=== PATIENT | female | born 1935 | race Caucasian/White ===

== ENCOUNTER 2020-03-03 15:37 | Emergency (ER) | payer MEDICARE, BC ==
[2020-03-03] MEDS ORDERED: Sodium Chloride 0.9% 10 ML Syringe FLUSH PRN (15:57)
[2020-03-03] MEDS ORDERED: Sodium Chloride 0.9% 1,000 ML IV STA (17:03)
--- NOTE | 2020-03-03 17:03 | CR ---
Chest: Portable view of the chest was obtained. Comparison: No prior chest imaging is available. Atelectasis is noted within the right lung base. Heart is slightly enlarged. Tortuous or aneurysmal aorta is noted. Commentary vessels are felt to be slightly congested. Bony structures are grossly intact. Impression: 1. Pulmonary vessels are mildly congested. 2. Mild right basilar atelectasis. 3. Tortuous or aneurysmal thoracic aorta. Diagnostic code #3 This report was dictated in MDT
--- NOTE | 2020-03-03 17:03 | CR ---
Abdomen: Portable supine view of the abdomen was obtained. Comparison: No prior abdominal x-ray. Motion artifact is seen. Surgical clips are seen within the pelvis as well as from prior cholecystectomy. Bowel gas pattern is normal. Bony structures are osteopenic. Compression deformity appears to be present within L1. Impression: 1. Findings as noted above. 2. Nothing acute is seen. Diagnostic code #2 This report was dictated in MDT
[2020-03-03] MEDS ORDERED: LORazepam 2 MG/ML SDV IVPUSH ONE (17:06)
--- NOTE | 2020-03-03 17:11 | EDM.PDOC ---
ED HPI GENERAL MEDICAL PROBLEM - General Chief Complaint: Back Pain or Injury Stated Complaint: [facility] Time Seen by Provider: 03/03/20 15:57 Source of Information: Reports: Patient History Limitations: Reports: No Limitations - History of Present Illness INITIAL COMMENTS - FREE TEXT/NARRATIVE: Patient is an 85-year-old female sent to the emergency department from [facility] with complaints of low back pain abdominal distention. jail reports that she had been constipated but received a Dulcolax suppository yesterday. After that she did have a large bowel movement. She had a urinalysis done by straight cath on 03 March which was negative for infection. Patient has a history of dementia and is combative and unable to communicate appropriately. Nursing staff reports that on arrival, she was complaining of pain to her legs, arms, back when being moved from the cart to the bed. Patient's is present at bedside and denies any recent falls or injuries to his knowledge. - Related Data Allergies Allergy/AdvReac Type Severity Reaction Status Date / Time amoxicillin Allergy Severe Cannot Verified 03/03/20 15:46 Remember citalopram Allergy Severe Cannot Verified 03/03/20 15:46 Remember sulfamethoxazole Allergy Severe Cannot Verified 03/03/20 15:46 [From Remember Sulfamethoxazole-Trimethoprim] trimethoprim Allergy Severe Cannot Verified 03/03/20 15:46 [From Remember Sulfamethoxazole-Trimethoprim] Home Meds: Home Meds Acetaminophen [Tylenol] 650 mg PO BID 03/03/20 [History] Acetaminophen [Tylenol] 650 mg PO Q6H PRN 03/03/20 [History] Alum Hydrox/Mag Hydrox/Simeth [Maalox Advanced] 30 ml PO Q4H PRN 03/03/20 [History] Bisacodyl [Gentle Laxative] 10 mg RECTAL DAILY PRN 03/03/20 [History] Carboxymethylcellulose/Lytes [Jose G-Stir Oral [place]] 1 spray BUCCAL Q4H PRN 03/03/20 [History] Escitalopram Oxalate 5 mg PO DAILY 03/03/20 [History] Menthol/Methyl Salicylate [Icy Hot] 1 applic TOP Q6HR PRN 03/03/20 [History] Ondansetron [Zofran ODT] 4 mg PO Q4H PRN 03/03/20 [History] Propylene Glycol/Peg 400 [Systane 0.3-0.4% Eye Drops] 1 - 2 drop EYEBOTH Q1H 03/03/20 [History] QUEtiapine Fumarate [Seroquel] 50 mg PO TID 03/03/20 [History] polyethylene glycoL 3350 [MiraLAX] 17 g PO DAILY 03/03/20 [History] Past Medical History Cardiovascular History: Reports: Other (See Below) Other Cardiovascular History: nonrheumatic mitral prolapse , hyperlipidemia, fatgue, thoracic aortic aneurysm without rupture Gastrointestinal History: Reports: Chronic Constipation, Other (See Below) Other Gastrointestinal History: epigastric pain , peptic ulcer Genitourinary History: Reports: UTI, Recurrent Musculoskeletal History: Reports: Osteoarthritis, Osteoporosis Neurological History: Reports: Alzheimers Disease, Other (See Below) Other Neuro History: unspecified dementia with behavioral disturbance Psychiatric History: Reports: Alzheimers Disease Dermatologic History: Reports: Other (See Below) Other Dermatologic History: seborrheic dermatitis Social & Family History - Tobacco Use Smoking Status *Q: Never Smoker - Caffeine Use Caffeine Use: Reports: Coffee - Recreational Drug Use Recreational Drug Use: No ED ROS GENERAL - Review of Systems Review Of Systems: See Below Constitutional: Denies: Fever, Weakness, Fatigue, Decreased Appetite HEENT: Reports: No Symptoms Respiratory: Reports: No Symptoms. Denies: Cough Cardiovascular: Reports: No Symptoms. Denies: Chest Pain Endocrine: Reports: No Symptoms GI/Abdominal: Reports: Constipation, Distension. Denies: Abdominal Pain, Vomiting : Reports: No Symptoms Musculoskeletal: Reports: Back Pain Skin: Reports: No Symptoms Neurological: Reports: No Symptoms Psychiatric: Reports: No Symptoms Hematologic/Lymphatic: Reports: No Symptoms Immunologic: Reports: No Symptoms ED EXAM,LOWER BACK PAIN/INJURY - Physical Exam Exam: See Below Exam Limited By: Other (confused and somewhat combative secondary to dementia) General Appearance: Alert Respiratory/Chest: No Respiratory Distress, Lungs Clear, Normal Breath Sounds, No Accessory Muscle Use, Chest Non-Tender Cardiovascular: Normal Peripheral Pulses, Regular Rate, Rhythm, No Edema, No Gallop, No JVD, No Murmur, No Rub Back Exam: Other (generalized tenderness to upper and lower back) Neurological: Alert, No Motor/Sensory Deficits, Other (patient is confused and combative at baseline secondary to dementia.) Course - Vital Signs Last Recorded V/S: Last Vital Signs Temp 97.2 F 09/15/20 18:20 Pulse 91 03/03/20 18:20 Resp 16 03/03/20 18:20 BP 139/92 H 03/03/20 18:20 Pulse Ox 92 L 03/03/20 18:38 - Orders/Labs/Meds Labs: Laboratory Tests 03/03/20 03/03/20 03/03/20 Range/Units 16:30 16:30 16:35 WBC 10.56 H (3.98-10.04) K/mm3 RBC 5.01 (3.98-5.22) M/mm3 Hgb 15.0 (11.2-15.7) gm/dl Hct 45.8 H (34.1-44.9) % MCV 91.4 (79.4-94.8) fl MCH 29.9 (25.6-32.2) pg MCHC 32.8 (32.2-35.5) g/dl RDW Std Deviation 41.6 (36.4-46.3) fL Plt Count 318 (182-369) K/mm3 MPV 9.2 L (9.4-12.3) fl Neut % (Auto) 71.7 H (34.0-71.1) % Lymph % (Auto) 14.1 L (19.3-51.7) % [place] % (Auto) 13.1 H (4.7-12.5) % Eos % (Auto) 0.4 L (0.7-5.8) Baso % (Auto) 0.3 (0.1-1.2) % Neut # (Auto) 7.58 H (1.56-6.13) K/mm3 Lymph # (Auto) 1.49 (1.18-3.74) K/mm3 [place] # (Auto) 1.38 H (0.24-0.36) K/mm3 Eos # (Auto) 0.04 (0.04-0.36) K/mm3 Baso # (Auto) 0.03 (0.01-0.08) K/mm3 Manual Slide Review Normal smear Sodium 137 (136-145) mEq/L Potassium 4.4 (3.5-5.1) mEq/L Chloride 100 (98-107) mEq/L Carbon Dioxide 29 (21-32) mEq/L Anion Gap 12.4 (5-15) BUN 30 H (7-18) mg/dL Creatinine 1.0 (0.55-1.02) mg/dL Est Cr Clr Drug Dosing 29.01 mL/min Estimated GFR (MDRD) 53 (>60) mL/min BUN/Creatinine Ratio 30.0 H (14-18) Glucose 100 (83-115) mg/dL Calcium 9.5 (8.5-10.1) mg/dL Total Bilirubin 0.7 (0.2-1.0) mg/dL AST 26 (15-37) U/L ALT 35 (14-59) U/L Alkaline Phosphatase 82 (46-116) U/L C-Reactive Protein 10.9 H* (<1.0) mg/dL Total Protein 7.8 (6.4-8.2) g/dl Albumin 3.2 L (3.4-5.0) g/dl Globulin 4.6 gm/dL Albumin/Globulin Ratio 0.7 L (1-2) Urine Color Yellow (Yellow) Urine Appearance Clear (Clear) Urine pH 7.0 (5.0-8.0) Ur Specific [place] 1.025 (1.005-1.030) Urine Protein Trace H (Negative) Urine Glucose (UA) Negative (Negative) Urine Ketones Negative (Negative) Urine Occult Blood Negative (Negative) Urine Nitrite Negative (Negative) Urine Bilirubin Negative (Negative) Urine Urobilinogen 0.2 (0.2-1.0) Ur Leukocyte Esterase Negative (Negative) Urine RBC 0-5 (0-5) /hpf Urine WBC 0-5 (0-5) /hpf Ur Squamous Epith Cells 0-5 (0-5) /hpf Urine Bacteria Few (FEW) /hpf Urine Mucus Few (FEW) /hpf Meds: Medications Discontinued Medications Generic Name Dose Route Start Last Admin Trade Name Freq PRN Reason Stop Dose Admin Hydromorphone HCl 0.25 mg 03/03/20 18:05 03/03/20 18:16 Dilaudid IVPUSH 03/03/20 18:06 0.25 mg ONETIME ONE Administration Sodium Chloride 1,000 mls @ 150 mls/hr 03/03/20 17:03 03/03/20 17:41 Normal Saline IV 03/03/20 23:42 150 mls/hr NOW STA Administration Iopamidol 100 ml 09/15/20 17:19 03/03/20 17:35 Isovue-300 (61%) IVPUSH 03/03/20 17:20 100 ml ONETIME ONE Administration Lorazepam 0.25 mg 03/03/20 17:06 03/03/20 17:28 Ativan IVPUSH 03/03/20 17:07 0.25 mg ONETIME ONE Administration Sodium Chloride 10 ml 03/03/20 15:57 03/03/20 17:28 Saline Flush FLUSH 10 ml ASDIRECTED PRN Administration Keep Vein Open Sodium Chloride 10 ml 03/03/20 17:19 03/03/20 17:35 Saline Flush FLUSH 03/03/20 17:20 10 ml ONETIME ONE Administration - Re-Assessments/Exams Free Text/Narrative Re-Assessment/Exam: Patient is an 85-year-old female sent to the emergency department from [facility] with concerns of lower and upper back pain as well as abdominal distention. Patient has severe dementia and is unable to communicate appropriately. She is combative at times. She does appear to experience pain to palpation of her upper and lower back. She has had no recent falls. jail is also concerned that she has some abdominal distention in light of recent constipation. She did receive a Dulcolax suppository yesterday and developed a large bowel movement. I have ordered CBC, CMP, CRP, urinalysis, 1 view chest x-ray, and 1 view abdomen x-ray. 03/03/20 17:11 Hematology was significant for WBC elevated at 10.56, BUN 30, CRP 10.9. Urinalysis was negative for infection. X-ray of the chest was reviewed by myself and Dr. Valero, and there is some concern that she could have air under her right hemidiaphragm. I ordered a CT scan of the abdomen pelvis with IV contrast only. 03/03/20 18:55 CT scan of the abdomen pelvis shows a severe compression deformity of L1 as well as a lesser compression deformity of T9, both of which are felt to be most likely old. CT of the abdomen pelvis was negative for any acute abnormalities. Patient's verbalized that she has been complaining of pain to her lower and upper back. He states that she has had pain similar to this in the past, however generally improves. Her pain is likely stemming from her compression fractures of T9 and L1. She is currently taken Tylenol 650 mg twice daily at the assisted. We will increase this to 3 times daily and allow for 200 mg ibuprofen twice daily as needed for pain x 5 days. Recommend follow-up with your primary care provider at the next available visit. Discharge instructions as documented. Departure - Departure Time of Disposition: 19:06 Disposition: DC/Tfer to [facility] Condition: Good Clinical Impression: Back pain Qualifiers: Back pain location: back pain in unspecified location Chronicity: acute Back pain laterality: unspecified Qualified Code(s): M54.9 - Dorsalgia, unspecified - Discharge Information Instructions: Acute Back Pain, Adult Referrals: PCP,None [Ordering Only Provider] - Dony Nagy MD [Primary Care Provider] - Forms: ED Department Discharge Additional Instructions: Tamera was seen in the emergency department this evening for back pain and abdominal distention. Work-up included blood work, urinalysis, chest x-ray, abdominal x-ray, and a CT scan of her abdomen pelvis. Her overall work-up was found to be normal, however she was noted to have compression deformities at L1 and T9 which are likely the cause of her back pain. Her CT of her abdomen pelvis was normal. While in ER, she received Ativan to help relax her for the imaging and a small dose of Dilaudid for pain. For pain management at home, she may increase her Tylenol to 650 mg every 8 hours. In addition, she may use 200 mg of ibuprofen every 12 hours as needed for pain over the next 5 days. Recommend that she have follow-up with her primary care provider for ongoing pain management, as she should not be on the ibuprofen long-term. Return to ER for any new or worsening symptoms of concern. Sepsis Event Note (ED) - Evaluation Sepsis Screening Result: No Definite Risk
[2020-03-03] MEDS ORDERED: Iopamidol 612 MG/ML 100 ML Bottle IVPUSH ONE (17:19)
[2020-03-03] MEDS ORDERED: Sodium Chloride 0.9% 10 ML Syringe FLUSH ONE (17:19)
[2020-03-03] MEDS ORDERED: HYDROmorphone 0.5 MG/0.5 ML Syringe IVPUSH ONE (18:05)
--- NOTE | 2020-03-03 18:13 | CT ---
CT abdomen and pelvis Technique: Multiple axial sections were obtained from above the dome of the diaphragm inferiorly through the pubic symphysis. Intravenous contrast was utilized. No oral contrast has been given. Findings: Small pleural effusion is seen with thick area of right basilar atelectasis. Lesser left basilar atelectasis is noted. Liver contains no discrete focal abnormality. Small hiatal hernia is noted. Spleen size is normal. Adrenal glands show no nodules. Kidneys show symmetric contrast enhancement without hydronephrosis or mass. Small cyst is noted within the right kidney measuring 8 mm. Aorta shows atherosclerotic calcification without aneurysm. No retroperitoneal adenopathy or mesenteric abnormalities are seen. No pelvic mass or adenopathy is noted. Focal stool is noted within the rectosigmoid region. Mild diverticuli are seen with no findings of diverticulitis. No bowel dilatation is appreciated. Appendix not visualized with certainty. Delayed images shows contrast within the distal ureters as well as within the bladder. Bone window settings were reviewed which shows a severe compression deformity of L1 which is most likely old. Lesser compression deformity within T9 which is most likely old. Impression: 1. Multiple findings as noted above. 2. Nothing acute is seen. Diagnostic code #2 This report was dictated in MDT
== END 2020-03-03 20:45 ==
LOC: JD.ED 15:37
DX: M54.5 Low back pain (principal); R14.0 Abdominal distension (gaseous); E78.5 Hyperlipidemia, unspecified; G30.9 Alzheimer's disease, unspecified; F02.80 Dementia in other diseases classified elsewhere, unspecified severity, without behavioral disturbance, psychotic disturbance, mood disturbance, and anxiety; Z88.1 Allergy status to other antibiotic agents; Z88.2 Allergy status to sulfonamides; Z88.8 Allergy status to other drugs, medicaments and biological substances; Z79.899 Other long term (current) drug therapy
CPT/HCPCS: 36415; 71045; 74018; 74177; 80053; 81001; 85025; 86140; 96361; 96374; 96375; 99284; J1170; J2060; J7030; Q9967; 99283

== ENCOUNTER 2020-05-08 11:36 | Emergency (ER) | payer MEDICARE, BC ==
[2020-05-08] MEDS ORDERED: HYDROmorphone 0.5 MG/0.5 ML Syringe IVPUSH ONE ×3 (11:43→18:23)
[2020-05-08] MEDS ORDERED: Ondansetron 4 MG/2 ML SDV IVPUSH ONE (11:44)
[2020-05-08] MEDS ORDERED: Dextrose 5%-0.9% NaCl 1,000 ML IV SCH ×3 (11:45→17:45)
--- NOTE | 2020-05-08 11:51 | EDM.PDOC ---
ED HPI GENERAL MEDICAL PROBLEM - General Chief Complaint: Lower Extremity Injury/Pain Stated Complaint: [facility] Time Seen by Provider: 05/08/20 11:36 Source of Information: Reports: Patient, EMS, Care Home Records History Limitations: Reports: Altered Mental Status - History of Present Illness INITIAL COMMENTS - FREE TEXT/NARRATIVE: 85-year-old female presents to the ED per [place] [facility]. She is currently a resident at [facility] in [place]. Was found on the bathroom floor of her room and is unclear how long she was down. She has a laceration to her left occipital scalp approximately 1.5 cm in length. It has stopped bleeding. She is complaining of left leg and hip pain. Patient has underlying dementia and speaks very crudely and often in a threatening manner. Apparently this is her normal behavior. She received Ativan and tramadol approximately 1115 hrs. this morning. Unclear if she walks without a gait aid as she would not give me a an appropriate answer in this regard. Identified [facility] that this patient does not walk. She is either bedbound or wheelchair-bound. Her CODE STATUS is yet to be determined as well. Onset: Today, Sudden, Unknown/Unsure Onset Date: 05/08/20 Duration: Hour(s): Location: Reports: Head (She has a small laceration and hematoma to the left occipital scalp. Complains of severe pain left hip), Lower Extremity, Left ( with any movement.) Quality: Reports: Ache Severity: Moderate Improves with: Reports: Rest Worsens with: Reports: Movement Context: Reports: Trauma (Apparently fell in the bathroom of her suite at [facility] this morning). Denies: Activity, Exercise, Lifting, Sick Contact Associated Symptoms: Reports: Confusion. Denies: Chest Pain, Cough, cough w sputum, Diaphoresis, Fever/Chills, Headaches, Loss of Appetite, Malaise, Nausea/Vomiting, Rash, Seizure, Shortness of Breath, Syncope Treatments DIRECTOR PATIENT: Reports: Other (see below) (Apparently has had Ativan and tramadol at about 1115 hrs. this morning.) Left Leg Pain Score (Numeric/FACES): 5 - Related Data Allergies Allergy/AdvReac Type Severity Reaction Status Date / Time amoxicillin Allergy Unknown Cannot Verified 05/08/20 16:48 Remember citalopram Allergy Unknown Cannot Verified 05/08/20 16:48 Remember sulfamethoxazole Allergy Unknown Cannot Verified 05/08/20 16:48 [From Remember Sulfamethoxazole-Trimethoprim] trimethoprim Allergy Unknown Cannot Verified 05/08/20 16:48 [From Remember Sulfamethoxazole-Trimethoprim] Home Meds: Home Meds Acetaminophen [Tylenol] 650 mg PO Q6H PRN 03/03/20 [History] Acetaminophen [Tylenol] 650 mg PO TID 03/03/20 [History] Alum Hydrox/Mag Hydrox/Simeth [Maalox Advanced] 30 ml PO Q4H PRN 03/03/20 [History] Bisacodyl [Gentle Laxative] 10 mg RECTAL DAILY PRN 03/03/20 [History] Carboxymethylcellulose/Lytes [Jose G-Stir Oral [place]] 1 spray BUCCAL Q4H PRN 03/03/20 [History] Escitalopram Oxalate 5 mg PO DAILY 03/03/20 [History] Menthol/Methyl Salicylate [Icy Hot] 1 applic TOP QID PRN 03/03/20 [History] Ondansetron [Zofran ODT] 4 mg PO Q4H PRN 03/03/20 [History] Propylene Glycol/Peg 400 [Systane 0.3-0.4% Eye Drops] 1 - 2 drop EYEBOTH Q1H 03/03/20 [History] QUEtiapine Fumarate [Seroquel] 50 mg PO TID 03/03/20 [History] polyethylene glycoL 3350 [MiraLAX] 17 g PO DAILY 03/03/20 [History] LORazepam [Ativan] 0.5 mg PO ASDIRECTED PRN 05/08/20 [History] levoFLOXacin [Levaquin] 500 mg PO DAILY #5 tab 05/08/20 [Rx] traMADol [Ultram] 50 mg PO Q8H PRN #24 tab 05/08/20 [Rx] traMADol [Ultram] 50 mg PO TID 05/08/20 [History] Past Medical History Cardiovascular History: Reports: Other (See Below) Other Cardiovascular History: nonrheumatic mitral prolapse , hyperlipidemia, fatgue, thoracic aortic aneurysm without rupture Gastrointestinal History: Reports: Chronic Constipation, Other (See Below) Other Gastrointestinal History: epigastric pain , peptic ulcer Genitourinary History: Reports: UTI, Recurrent Musculoskeletal History: Reports: Osteoarthritis, Osteoporosis Neurological History: Reports: Alzheimers Disease, Other (See Below) Other Neuro History: unspecified dementia with behavioral disturbance Psychiatric History: Reports: Alzheimers Disease Dermatologic History: Reports: Other (See Below) Other Dermatologic History: seborrheic dermatitis Social & Family History - Caffeine Use Caffeine Use: Reports: Coffee - Living Situation & Occupation Living situation: Reports: , Extended Care Facility (Currently resides at [facility] in [place].) Occupation: Retired Review of Systems - Review of Systems Review Of Systems: Unable To Obtain (Unable to obtain with any degree of c ertainty as the patient is uncooperative and I believe has a component of dementia and will answer only questions inappropriately.) Reason Not Obtained: And has severe dementia. ED EXAM, GENERAL - Physical Exam Exam: See Below Exam Limited By: Uncooperative (He is uncooperative but with a threatening demeanor. Apparently this is her normal behavior. She has known underlying dementia.) General Appearance: Alert, Anxious, Mild Distress, Other (Temperature is 36.2 heart rate was 93 and sinus on the monitor respiratory is 18 with O2 sats of 92 to 94%. BP 141 100.) Eye Exam: Bilateral Eye: Normal Inspection (No scleral icterus or blepharal pallor.), PERRL Ears: Normal External Exam Throat/Mouth: Other (Tongue is dry and shrunken.). No: Normal Inspection, Normal Lips ('s are very dry and chapped.), Normal Oropharynx Head: Other (Patient has a 1 to 1.5 cm laceration with dried blood on the left superior occipital aspect of her scalp. It is not actively bleeding. On exploration this is a very superficial laceration 1 cm in length and it will be closed with skin glue.) Neck: Normal Inspection, Supple, Non-Tender, Full Range of Motion, Other (She had no pain when I palpated her neck and she moves her head around). No: Tender Lateral Respiratory/Chest: No Respiratory Distress, Chest Non-Tender, Decreased Breath Sounds, Wheezing (Sounds are diminished to the lower 30% the lung hubbard bilaterally.), Other (Signs of chest wall trauma. No subcutaneous emphysema or crepitus identified.). No: Lungs Clear, Normal Breath Sounds ( Occasional expiratory wheeze.) Cardiovascular: Regular Rate, Rhythm, No Edema, No Gallop, No Murmur (Grade 1 out of 6 systolic ejection murmur), No Rub ( over the mitral listening post.). No: Normal Peripheral Pulses Peripheral Pulses: 2+: Carotid (L), Carotid (R), Posterior Tibial (L), Posterior Tibial (R), Dorsalis Pedis (L), Dorsalis Pedis (R) GI/Abdominal: Normal Bowel Sounds, Soft, Non-Tender, No Organomegaly, No Mass, Pelvis Stable, Other (No surgical scars appreciated.) Back Exam: Full Range of Motion, Other (Mild kyphosis thoracic spine). No: CVA Tenderness (L), Paraspinal Tenderness Extremities: Other (Examination of the right lower extremity shows no deformities or injuries. She does have swelling of the over the greater cancer of the left hip and pain in this area. She is unwilling to lift the leg from the gurney. Any movement of the foot causes pain in the hip area. The leg appears to be mildly shortened with mild external rotation of the foot suggesting a left hip fracture. No palpable deformities of the tib-fib or femur were otherwise identified.) Neurological: Alert. No: Oriented (Oriented to time and place.), Normal Cognition, Normal Gait Psychiatric: Anxious, Other (Somewhat threatening demeanor which apparently is her normal.) Skin Exam: Warm ( Has underlying dementia.), Dry, Intact, Normal Color, No Rash ED TRAUMA EXTREMITY PROCEDURES - Laceration/Wound Repair Left Upper Occipital Head Lac/Wound Length In cm: 1.0 Appearance: Superficial, Linear Distal NVT: Neuro & Vascular Intact Skin Prep: Saline Exploration/Debridement/Repair: Wound Explored Closed With: Dermabond #1 Interpretation EKG Date: 05/08/20 Time: 13:08 Rhythm: NSR Rate (Beats/Min): 83 [place]: LAD-Left [place] Deviation (-54 degrees) P-Wave: Enlarged QRS: Other (Near Q waves in lead III and aVF consider possible old inferior wall myocardial infarction a large consider left atrial hypertrophy pattern initial poor R wave progression with late transition. Decreased voltage in both the limb and precordial leads. Emphysematous pattern) ST-T: Normal QT: Normal EKG Interpretation Comments: Abnormal ECG Course - Vital Signs Last Recorded V/S: Last Vital Signs Temp 36.2 C 05/08/20 11:41 Pulse 93 05/08/20 11:41 Resp 18 05/08/20 11:41 BP 141/100 H 05/08/20 11:41 Pulse Ox 92 L 05/08/20 11:41 - Orders/Labs/Meds Orders: Active Orders 24 hr Category Date Time Status CULTURE URINE [RM] Stat Lab 05/08/20 14:57 Ordered PATIENT RETYPE [BBK] Routine Lab 05/08/20 14:04 Ordered Dextrose 5%-0.9% NaCl [Dextrose 5%-Normal Saline] 1,000 Med 05/08/20 17:00 Active ml IV ASDIRECTED Dextrose 5%-0.9% NaCl [Dextrose 5%-Normal Saline] 1,000 Med 05/08/20 17:45 Active ml IV ASDIRECTED HYDROmorphone [Dilaudid] Med 05/08/20 18:23 Once 0.5 mg IVPUSH ONETIME ONE LORazepam [Ativan] Med 05/08/20 18:23 Once 0.5 mg IV ONETIME ONE Medication Orders Dextrose/Sodium Chloride (Dextrose 5%-Normal Saline) 1,000 mls @ 150 mls/hr IV ASDIRECTED DIVINE Dextrose/Sodium Chloride (Dextrose 5%-Normal Saline) 1,000 mls @ 100 mls/hr IV ASDIRECTED DIVINE Last Admin: 05/08/20 17:55 Dose: 100 mls/hr Documented by: NICOLE Labs: Laboratory Tests 05/08/20 05/08/20 05/08/20 Range/Units 12:05 12:05 12:05 WBC 9.34 (3.98-10.04) K/mm3 RBC 5.27 H (3.98-5.22) M/mm3 Hgb 15.5 (11.2-15.7) gm/dl Hct 47.2 H (34.1-44.9) % MCV 89.6 (79.4-94.8) fl MCH 29.4 (25.6-32.2) pg MCHC 32.8 (32.2-35.5) g/dl RDW Std Deviation 45.2 (36.4-46.3) fL Plt Count 336 (182-369) K/mm3 MPV 9.3 L (9.4-12.3) fl Neut % (Auto) 84.9 H (34.0-71.1) % Lymph % (Auto) 7.9 L (19.3-51.7) % [place] % (Auto) 5.7 (4.7-12.5) % Eos % (Auto) 0.4 L (0.7-5.8) Baso % (Auto) 0.5 (0.1-1.2) % Neut # (Auto) 7.92 H (1.56-6.13) K/mm3 Lymph # (Auto) 0.74 L (1.18-3.74) K/mm3 [place] # (Auto) 0.53 H (0.24-0.36) K/mm3 Eos # (Auto) 0.04 (0.04-0.36) K/mm3 Baso # (Auto) 0.05 (0.01-0.08) K/mm3 Manual Slide Review Normal smear ESR 14 (0-20) mm/hr PT (9.7-12.0) SECONDS INR APTT (21.7-31.4) SECONDS Sodium (136-145) mEq/L Potassium (3.5-5.1) mEq/L Chloride (98-107) mEq/L Carbon Dioxide (21-32) mEq/L Anion Gap (5-15) BUN (7-18) mg/dL Creatinine (0.55-1.02) mg/dL Est Cr Clr Drug Dosing mL/min Estimated GFR (MDRD) (>60) mL/min BUN/Creatinine Ratio (14-18) Glucose (83-115) mg/dL Calcium (8.5-10.1) mg/dL Magnesium (1.8-2.4) mg/dl Total Bilirubin (0.2-1.0) mg/dL AST (15-37) U/L ALT (14-59) U/L Alkaline Phosphatase (46-116) U/L Troponin I (0.00-0.056) ng/mL C-Reactive Protein (<1.0) mg/dL NT-Pro-B Natriuret Pep 106 (0-450) pg/mL Total Protein (6.4-8.2) g/dl Albumin (3.4-5.0) g/dl Globulin gm/dL Albumin/Globulin Ratio (1-2) Urine Color (Yellow) Urine Appearance (Clear) Urine pH (5.0-8.0) Ur Specific Steele (1.005-1.030) Urine Protein (Negative) Urine Glucose (UA) (Negative) Urine Ketones (Negative) Urine Occult Blood (Negative) Urine Nitrite (Negative) Urine Bilirubin (Negative) Urine Urobilinogen (0.2-1.0) Ur Leukocyte Esterase (Negative) Urine RBC (0-5) /hpf Urine WBC (0-5) /hpf Ur Squamous Epith Cells (0-5) /hpf Amorphous Sediment (NOT SEEN) /hpf Urine Bacteria (FEW) /hpf Urine Mucus (FEW) /hpf SARS-CoV-2 RNA (MICHAEL) (NEGATIVE) Blood Type Gel Antibody Screen 05/08/20 05/08/20 05/08/20 Range/Units 12:50 12:50 12:50 WBC (3.98-10.04) K/mm3 RBC (3.98-5.22) M/mm3 Hgb (11.2-15.7) gm/dl Hct (34.1-44.9) % MCV (79.4-94.8) fl MCH (25.6-32.2) pg MCHC (32.2-35.5) g/dl RDW Std Deviation (36.4-46.3) fL Plt Count (182-369) K/mm3 MPV (9.4-12.3) fl Neut % (Auto) (34.0-71.1) % Lymph % (Auto) (19.3-51.7) % [place] % (Auto) (4.7-12.5) % Eos % (Auto) (0.7-5.8) Baso % (Auto) (0.1-1.2) % Neut # (Auto) (1.56-6.13) K/mm3 Lymph # (Auto) (1.18-3.74) K/mm3 [place] # (Auto) (0.24-0.36) K/mm3 Eos # (Auto) (0.04-0.36) K/mm3 Baso # (Auto) (0.01-0.08) K/mm3 Manual Slide Review ESR (0-20) mm/hr PT 10.5 (9.7-12.0) SECONDS INR 0.98 APTT 25.3 (21.7-31.4) SECONDS Sodium (136-145) mEq/L Potassium (3.5-5.1) mEq/L Chloride (98-107) mEq/L Carbon Dioxide (21-32) mEq/L Anion Gap (5-15) BUN (7-18) mg/dL Creatinine (0.55-1.02) mg/dL Est Cr Clr Drug Dosing mL/min Estimated GFR (MDRD) (>60) mL/min BUN/Creatinine Ratio (14-18) Glucose (83-115) mg/dL Calcium (8.5-10.1) mg/dL Magnesium 2.2 (1.8-2.4) mg/dl Total Bilirubin (0.2-1.0) mg/dL AST (15-37) U/L ALT (14-59) U/L Alkaline Phosphatase (46-116) U/L Troponin I < 0.017 (0.00-0.056) ng/mL C-Reactive Protein 1.1 H* (<1.0) mg/dL NT-Pro-B Natriuret Pep (0-450) pg/mL Total Protein (6.4-8.2) g/dl Albumin (3.4-5.0) g/dl Globulin gm/dL Albumin/Globulin Ratio (1-2) Urine Color (Yellow) Urine Appearance (Clear) Urine pH (5.0-8.0) Ur Specific [place] (1.005-1.030) Urine Protein (Negative) Urine Glucose (UA) (Negative) Urine Ketones (Negative) Urine Occult Blood (Negative) Urine Nitrite (Negative) Urine Bilirubin (Negative) Urine Urobilinogen (0.2-1.0) Ur Leukocyte Esterase (Negative) Urine RBC (0-5) /hpf Urine WBC (0-5) /hpf Ur Squamous Epith Cells (0-5) /hpf Amorphous Sediment (NOT SEEN) /hpf Urine Bacteria (FEW) /hpf Urine Mucus (FEW) /hpf SARS-CoV-2 RNA (MICHAEL) (NEGATIVE) Blood Type B POSITIVE Gel Antibody Screen Negative 05/08/20 05/08/20 05/08/20 Range/Units 12:50 12:59 14:10 WBC (3.98-10.04) K/mm3 RBC (3.98-5.22) M/mm3 Hgb (11.2-15.7) gm/dl Hct (34.1-44.9) % MCV (79.4-94.8) fl MCH (25.6-32.2) pg MCHC (32.2-35.5) g/dl RDW Std Deviation (36.4-46.3) fL Plt Count (182-369) K/mm3 MPV (9.4-12.3) fl Neut % (Auto) (34.0-71.1) % Lymph % (Auto) (19.3-51.7) % [place] % (Auto) (4.7-12.5) % Eos % (Auto) (0.7-5.8) Baso % (Auto) (0.1-1.2) % Neut # (Auto) (1.56-6.13) K/mm3 Lymph # (Auto) (1.18-3.74) K/mm3 [place] # (Auto) (0.24-0.36) K/mm3 Eos # (Auto) (0.04-0.36) K/mm3 Baso # (Auto) (0.01-0.08) K/mm3 Manual Slide Review ESR (0-20) mm/hr PT (9.7-12.0) SECONDS INR APTT (21.7-31.4) SECONDS Sodium 137 (136-145) mEq/L Potassium 4.7 (3.5-5.1) mEq/L Chloride 100 (98-107) mEq/L Carbon Dioxide 23 (21-32) mEq/L Anion Gap 18.7 H (5-15) BUN 26 H (7-18) mg/dL Creatinine 0.8 (0.55-1.02) mg/dL Est Cr Clr Drug Dosing 36.26 mL/min Estimated GFR (MDRD) > 60 (>60) mL/min BUN/Creatinine Ratio 32.5 H (14-18) Glucose 95 (83-115) mg/dL Calcium 9.9 (8.5-10.1) mg/dL Magnesium (1.8-2.4) mg/dl Total Bilirubin 0.8 (0.2-1.0) mg/dL AST 30 (15-37) U/L ALT 27 (14-59) U/L Alkaline Phosphatase 81 (46-116) U/L Troponin I (0.00-0.056) ng/mL C-Reactive Protein (<1.0) mg/dL NT-Pro-B Natriuret Pep (0-450) pg/mL Total Protein 8.1 (6.4-8.2) g/dl Albumin 3.6 (3.4-5.0) g/dl Globulin 4.5 gm/dL Albumin/Globulin Ratio 0.8 L (1-2) Urine Color Light yellow (Yellow) Urine Appearance Slt cloudy H (Clear) Urine pH 7.5 (5.0-8.0) Ur Specific [place] 1.025 (1.005-1.030) Urine Protein Negative (Negative) Urine Glucose (UA) Negative (Negative) Urine Ketones Negative (Negative) Urine Occult Blood Trace-intact H (Negative) Urine Nitrite Positive H (Negative) Urine Bilirubin Negative (Negative) Urine Urobilinogen 0.2 (0.2-1.0) Ur Leukocyte Esterase Negative (Negative) Urine RBC 0-5 (0-5) /hpf Urine WBC 10-20 H (0-5) /hpf Ur Squamous Epith Cells 20-30 H (0-5) /hpf Amorphous Sediment Few H (NOT SEEN) /hpf Urine Bacteria Many H (FEW) /hpf Urine Mucus Not seen (FEW) /hpf SARS-CoV-2 RNA (MICHAEL) Negative (NEGATIVE) Blood Type Gel Antibody Screen Meds: Medications Generic Name Dose Route Start Last Admin Trade Name Freq PRN Reason Stop Dose Admin Dextrose/Sodium Chloride 1,000 mls @ 150 mls/hr 05/08/20 17:00 Dextrose 5%-Normal Saline IV ASDIRECTED DIVINE Dextrose/Sodium Chloride 1,000 mls @ 100 mls/hr 05/08/20 17:45 05/08/20 17:55 Dextrose 5%-Normal Saline IV 100 mls/hr ASDIRECTED DIVINE Administration Discontinued Medications Generic Name Dose Route Start Last Admin Trade Name Freq PRN Reason Stop Dose Admin Hydromorphone HCl 0.5 mg 05/08/20 11:43 05/08/20 12:55 Dilaudid IVPUSH 05/08/20 11:44 0.5 mg ONETIME ONE Administration Hydromorphone HCl 0.5 mg 05/08/20 14:56 05/08/20 15:37 Dilaudid IVPUSH 05/08/20 14:57 0.5 mg ONETIME ONE Administration Dextrose/Sodium Chloride 1,000 mls @ 250 mls/hr 05/08/20 11:45 05/08/20 12:54 Dextrose 5%-Normal Saline IV 250 mls/hr ASDIRECTED DIVINE Administration Levofloxacin/Dextrose 500 mg/ 100 mls @ 100 mls/hr 05/08/20 14:56 05/08/20 15:36 Premix IV 05/08/20 15:55 100 mls/hr ONETIME ONE Administration Lorazepam 0.5 mg 05/08/20 14:55 Ativan IV 05/08/20 14:56 ONETIME ONE Ondansetron HCl 4 mg 05/08/20 11:44 05/08/20 12:54 Zofran IVPUSH 05/08/20 11:45 4 mg ONETIME ONE Administration - Radiology Interpretation Free Text/Narrative:: 85-year-old female who [facility] after being found on the floor of her bathroom of her suite. It is unclear how or when she fell. She has a 1 to 1.5 cm laceration with dried blood on the left occipital scalp with no active bleeding. The wound will have to be cleansed to see if you require suture repair. Will have to determine if she needs tetanus toxoid as well. No other injuries are identified clinically other than to the left hip with swelling and pain over the greater trochanteric process and left hip. She has no ability to lift or internally externally rotate the left hip due to pain. No apparent injuries to the ankle tib-fib or knees on either side. Mild kyphosis thoracic spine with no evidence of injury to the lumbar or thoracic spine. Plan she will have CT head carried out. She will have an x-ray of her pelvis and x-ray of her left femur carried out. Routine labs including coronavirus screen will be done as it appears she will need her hip repaired at some point time. Her code status is listed as DNR/DNI. - Re-Assessments/Exams Free Text/Narrative Re-Assessment/Exam: 05/08/20 12:56 chest x-ray reveals chronic subsegmental atelectasis versus scarring in the lateral right chest. Chronic right-sided lung volume loss. The lungs are otherwise clear. Chronic tortuous thoracic aorta. Normal-appearing heart and cardiomediastinal silhouette. X-ray of the pelvis reveals numerous right-sided pelvic surgical clips. There is an acute nondisplaced left intertrochanteric hip fracture with additional fracture deformity extending to the base of the left femoral neck all other bones are intact. X-ray of the left femur shows an acute and entirely nondisplaced upper left intertrochanteric hip fracture all other bones are intact to remain normally aligned. 05/08/20 12:59 White blood cell count is 9.34 with 84.9% neutrophils. Hemoglobin is 15.5 with hematocrit of 47.2 platelet count is 336,000. Persaud catheter will be inserted since the patient is nonweightbearing and will not be able to pivot on this leg to get to a commode due to fractured left hip. 05/08/20 13:52 Magnesium is 2.2 troponin is less than 0.017 C-reactive protein is 1.1 BNP is 106 05/08/20 14:23 COVID-19 is negative. The lab is having troubles with the chemistry analyzer and chemistry is not yet available. Does have a 1 cm relatively superficial laceration left parietal occipital scalp. It was closed using Dermabond skin glue. 05/08/20 14:55 Chemistry is now back. Sodium 137 with potassium of 4.7. Chloride 100 with a bicarb of 23. Anion gap is elevated slightly at 18.7 with a BUN of 26. Creatinine is 0.8. GFR remains greater than 60 indicating that she is mildly volume depleted. Glucose is 95 with a calcium of 9.9. Magnesium is 2.2 liver function is normal. Troponin I is less than 0.017. C-reactive protein is 1.1. BNP is 106 total protein 8.1 with an albumin fraction of 3.6. The urinalysis obtained by catheterization shows slightly cloudy urine positive nitrates trace of occult blood the slide reveals 10-20 WBCs per high-power field and 20-30 squamous epithelial cells. Many bacteria were seen. Urine culture has been ordered. Patient will be given Levaquin 500mg IV.. Rocephin is relatively contraindicated as her old notes suggest that she had a severe allergic reaction to amoxicillin in the past. This cannot be proven in any other way. 05/08/20 15:00 as mentioned above I had been in contact with the patient's daughter who is the power of state's attorney. I had indicated to her that without hip fixation by orthopedic surgeon that she would likely succumb to this illness by way of DVT/pulmonary embolism or pneumonia usually within the next 10 to 14 days. She is going to speak with other siblings and make a decision as to whether or not they want her transferred to [place] for definitive orthopedic surgical management. 05/08/20 18:26 [facility] [place] and indicates that they have a bed for this patient this time. The ambulance will be summoned to provide transport to [place]. She is having increased pain in her left hip fracture and will be given Dilaudid 0.5 mg IV and Ativan 0.5 mg IV for pain and mild sedation. Free Text/Narrative Re-Assessment/Exam: 05/08/20 16:05 Family members have come to a group discussion and agreed to have mother transferred to [place] for definitive orthopedic surgical management. I have relayed this information to the 1 call nurse at [facility] in [place] and she will phone us back when a bed becomes available to allow us to transfer her to that facility. 05/08/20 18:23. Hospital in [place] is now called and states that they do have a bed available for this patient. The ambulance will therefore be summoned to provide transport to that facility. Patient is quite agitated at this time and anxious about traveling to [place]. Will repeat Dilaudid 0.5 mg IV for left hip fracture pain and Ativan 0.5 mg IV for mild sedation. Departure - Departure Time of Disposition: 18:27 Disposition: DC/Tfer to Acute Hospital 02 Condition: Poor Clinical Impression: Minor closed head injury Occipital scalp laceration Qualifiers: Encounter type: initial encounter Qualified Code(s): S01.01XA - Laceration without foreign body of scalp, initial encounter Closed intertrochanteric fracture of left hip Qualifiers: Encounter type: initial encounter Fracture alignment: nondisplaced Qualified Code(s): S72.145A - Nondisplaced intertrochanteric fracture of left femur, initial encounter for closed fracture - Discharge Information *PRESCRIPTION DRUG MONITORING PROGRAM REVIEWED*: Not Applicable *COPY OF PRESCRIPTION DRUG MONITORING REPORT IN PATIENT DARREL: Not Applicable Prescriptions: levoFLOXacin [Levaquin] 500 mg PO DAILY #5 tab traMADol [Ultram] 50 mg PO Q8H PRN #24 tab PRN Reason: Fractured hip Referrals: Dony Nagy MD [Primary Care Provider] - Forms: ED Department Discharge Additional Instructions: Evaluation in the emergency room today in regards to a fall at [facility] where the patient resides. She suffered a minor closed injury with a 1 cm laceration left occipital parietal scalp which was cleansed and then closed with Dermabond skin glue. This will fall off on its own over the next week to 10 days. May wash hair as per normal. CT scan of the brain did not reveal any intracranial fractures or mass-effect or bleeding. X-rays of the pelvis confirm a fracture of the left hip which we call intertrochanteric fracture with minimal displacement. X-ray of the femur did not show any area fractures below the hip fracture. She was treated with small doses of Dilaudid in the ED for pain relief and Ativan. After discussion with multiple family members who have power of state's attorney decision has been made not to pursue surgical management of her fractured hip. The family wishes her to be kept comfortable and she will therefore be transferred back to [facility] in [place]. We will leave her on Levaquin 500 mg by mouth once daily for another 5 days to clear up urinary tract infection with the next tablet due tomorrow. Tramadol 50 mg tablet to be used every 8 hours as needed for pain relief in combination with Tylenol 650 mg every 6 hours as needed for pain relief. Usually these patients succumbed to DVT/pulmonary embolism within the next 10 to 21 days and/or pneumonia. Family is aware that this is likely going to occur. Sepsis Event Note (ED) - Evaluation Sepsis Screening Result: No Definite Risk - Focused Exam Vital Signs: Vital Signs Temp Pulse Resp BP Pulse Ox 05/08/20 11:41 36.2 C 93 18 141/100 H 92 L - My Orders Last 24 Hours: My Active Orders 05/08/20 14:04 PATIENT RETYPE [BBK] Routine 05/08/20 14:57 CULTURE URINE [RM] Stat 05/08/20 17:00 Dextrose 5%-0.9% NaCl [Dextrose 5%-Normal Saline] 1,000 ml IV ASDIRECTED 05/08/20 17:45 Dextrose 5%-0.9% NaCl [Dextrose 5%-Normal Saline] 1,000 ml IV ASDIRECTED 05/08/20 18:23 HYDROmorphone [Dilaudid] 0.5 mg IVPUSH ONETIME ONE LORazepam [Ativan] 0.5 mg IV ONETIME ONE - Assessment/Plan Last 24 Hours: My Active Orders 05/08/20 14:04 PATIENT RETYPE [BBK] Routine 05/08/20 14:57 CULTURE URINE [RM] Stat 05/08/20 17:00 Dextrose 5%-0.9% NaCl [Dextrose 5%-Normal Saline] 1,000 ml IV ASDIRECTED 05/08/20 17:45 Dextrose 5%-0.9% NaCl [Dextrose 5%-Normal Saline] 1,000 ml IV ASDIRECTED 05/08/20 18:23 HYDROmorphone [Dilaudid] 0.5 mg IVPUSH ONETIME ONE LORazepam [Ativan] 0.5 mg IV ONETIME ONE
--- NOTE | 2020-05-08 12:46 | CR ---
PROCEDURE INFORMATION: Exam: XR Chest, 1 View Exam date and time: 05/08/2020 12:28 PM Age: 85 years old Clinical indication: Condition or disease; Lung condition and disease; Copd TECHNIQUE: Imaging protocol: XR of the chest Views: 1 view. COMPARISON: CR Chest 1V Frontal 03/03/2020 4:24 PM FINDINGS: Lungs: Chronic subsegmental atelectasis versus scarring in the lateral lower right chest. Chronic right-sided lung volume loss. The lungs are otherwise clear. Pleural space: Normal. Heart/Mediastinum: Normal heart and cardiomediastinal silhouette. Vasculature: Chronic tortuous thoracic aorta. Normal caliber. Bones/joints: The bones are intact. IMPRESSION: Chronic atelectasis. No acute disease. Thank you for allowing us to participate in the care of your patient. Dictated and Authenticated by: Khai Kramer MD 05/08/2020 1:43 PM Central Time ([place] & [place]) MTDD
--- NOTE | 2020-05-08 12:51 | CR ---
PROCEDURE INFORMATION: Exam: XR Pelvis Exam date and time: 05/08/2020 12:20 PM Age: 85 years old Clinical indication: Pain and injury or trauma; Fall; Blunt trauma (contusions or hematomas); Hip pain and pelvic pain; Left hip; Additional info: Fall at [facility] living; Pain and swelling left lateral hip TECHNIQUE: Imaging protocol: XR pelvis. Views: 1 or 2 view. COMPARISON: CT Abdomen Pelvis w Cont 03/03/2020 5:15 PM FINDINGS: Tubes, catheters and devices: Numerous right-sided pelvic surgical clips. Bones/joints: Acute nondisplaced left intertrochanteric hip fracture with additional fracture deformity extending to the base of the left femoral neck. All other bones are intact. Soft tissues: Normal. IMPRESSION: Acute nondisplaced left intertrochanteric hip fracture with a small component involving the lateral base of the extracapsular left femoral neck. Thank you for allowing us to participate in the care of your patient. Dictated and Authenticated by: Khai Kramer MD 05/08/2020 1:49 PM Central Time ([place] & [place]) PURVI
--- NOTE | 2020-05-08 12:52 | CR ---
Addendum created by Khai Kramer MD on 05/08/2020 1:50 PM Central Time ([place] & [place]): Addendum: Not well seen on this study but better seen in the study of the pelvis later reviewed, there is a fracture component extending to the lateral base of the extracapsular left femoral neck. Initial Report created on 05/08/2020 1:47 PM Central Time ([place] & [place]): PROCEDURE INFORMATION: Exam: XR Left Femur Exam date and time: 05/08/2020 12:22 PM Age: 85 years old Clinical indication: Pain; Swelling, leg or foot; Hip; Left; Additional info: Fall at [facility]; Pain and swelling left lateral hip TECHNIQUE: Imaging protocol: XR Left femur. Views: 2 views. COMPARISON: No relevant prior studies available. FINDINGS: Bones/joints: Acute and entirely nondisplaced upper left intertrochanteric hip fracture. All other bones are intact and remain normally aligned. Soft tissues: Normal. IMPRESSION: Acute nondisplaced left intertrochanteric proximal femur fracture. Thank you for allowing us to participate in the care of your patient. Dictated and Authenticated by: Khai Kramer MD 05/08/2020 1:47 PM Central Time ([place] & [place]) MTDJustin
--- NOTE | 2020-05-08 14:03 | CT ---
PROCEDURE INFORMATION: Exam: CT Head Without Contrast Exam date and time: 05/08/2020 1:22 PM Age: 85 years old Clinical indication: Injury or trauma; Fall; Blunt trauma (contusions or hematomas); Additional info: [facility]; Pain TECHNIQUE: Imaging protocol: Computed tomography of the head without contrast. COMPARISON: No relevant prior studies available. FINDINGS: Brain: Severe diffuse brain volume loss. Mass no mass, intracranial hemorrhage or brain edema. Prominent symmetric hypoattenuation of the supratentorial white matter. Cerebral ventricles: No ventriculomegaly. Bones/joints: Normal. Paranasal sinuses: Clear. Mastoid air cells: Normal. Vasculature: Carotid atherosclerosis. Soft tissues: Unremarkable. Lymph nodes: Node transcortical defect. IMPRESSION: 1. No acute intracranial abnormality. 2. Diffuse brain atrophy without focal encephalomalacia. 3. 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 Thank you for allowing us to participate in the care of your patient. Dictated and Authenticated by: Khai Kramer MD 05/08/2020 2:42 PM Central Time ([place] & [place]) [facility]
[2020-05-08] MEDS ORDERED: LORazepam 2 MG/ML SDV IV ONE ×2 (14:55→18:23)
[2020-05-08] MEDS ORDERED: Levofloxacin/Dextrose 5%-Water 500 MG in Premix Bag 1 BAG IV ONE (14:56)
== END 2020-05-08 18:50 ==
LOC: JD.ED 11:36
DX: S72.145A Nondisplaced intertrochanteric fracture of left femur, initial encounter for closed fracture (principal); S01.01XA Laceration without foreign body of scalp, initial encounter; M40.204 Unspecified kyphosis, thoracic region; G30.9 Alzheimer's disease, unspecified; F02.80 Dementia in other diseases classified elsewhere, unspecified severity, without behavioral disturbance, psychotic disturbance, mood disturbance, and anxiety; Z20.828 Contact with and (suspected) exposure to other viral communicable diseases; Z88.1 Allergy status to other antibiotic agents; Z88.2 Allergy status to sulfonamides; Z79.899 Other long term (current) drug therapy; W19.XXXA Unspecified fall, initial encounter; Y92.121 Bathroom in nursing home as the place of occurrence of the external cause
CPT/HCPCS: 12001; 36415; 51702; 70450; 71045; 72170; 73552; 80053; 81001; 83735; 83880; 84484; 85025; 85610; 85652; 85730; 86140; 86850; 86900; 86901; 87086; 87088; 87186; 93005; 96365; 96375; 96376; 99285; J1170; J1956; J2060; J2405; J7042; U0002; 93010